=== PATIENT | female | born 1975 | race Hispanic/Latino ===

== ENCOUNTER 2018-08-24 09:02 | Outpatient (CLI) | payer OTHER ==
--- NOTE | 2018-08-24 10:40 | ULT ---
ULTRASOUND ABDOMEN LIMITED: (RIGHT UPPER QUADRANT) HISTORY: Right upper quadrant abdominal pain and post prandial nausea in 43-year-old female. FINDINGS: The gallbladder has normal wall thickness and has no evidence of gallstones or sludge. The hepatic e chogenicity is diffusely increased, consistent with fatty liver. The right kidney has normal echogen icity and has no hydronephrosis. The pancreas is obscured by bowel gas. There is no biliary dilatio n. The common duct caliber is 3 mm. IMPRESSION: 1) Hepatosteatosis. 2) No other pathology identified. 3) Pancreas not visualized. ankush POS: JOSE
== END 2018-08-24 09:03 | disposition home or self-care (01) ==
LOC: MADULT 09:02
DX: K21.9 Gastro-esophageal reflux disease without esophagitis (principal); R10.13 Epigastric pain; J11.89 Influenza due to unidentified influenza virus with other manifestations; R11.0 Nausea; K76.0 Fatty (change of) liver, not elsewhere classified
CPT/HCPCS: 76705